=== PATIENT | male | born 1985 | race Caucasian/White ===

== ENCOUNTER → 2017-06-26 | Outpatient (CLI) | payer OTHER ==
[~2017-06-26] MED LIST: CALCTAB5 PO; CHOLTAB3 PO
[2017-06-26 15:55] LABS: HEP C IGG 13 YRS+OLDER_RFLX NEG (NEG)
[2017-06-28 11:23] LABS: QUANTIF MITOGEN-NIL 7.88 IU/ML; QUANTIFERON NEGATIVE (NEGATIVE); QUANTIFERON NIL 0.08 IU/ML
== END | disposition home or self-care (01) ==
LOC: C.LAB1850 13:34
PROVIDERS: ATTEND Internal Medicine Gastroenterology
DX: K50.019 Crohn's disease of small intestine with unspecified complications (principal)